=== PATIENT | male | born 1965 ===

== ENCOUNTER 2019-07-13 09:09 | Day surgery (SDC) | payer OTHER ==
[2019-07-13] VITALS (8 sets, daily range): BP systolic 125–162; BP diastolic 77–99
[~2019-07-13] VITALS: Ht 180.3 cm; Wt 108.9 kg
--- NOTE | 2019-07-13 07:52 | Anethesia Preoperative Eval ---
Anesthesia Pre-op PMH/ROS General Date of Evaluation: Jul 13, 2019 Time of Evaluation: 07:51 Anesthesiologist: kristi ASA Score: ASA 3 Mallampati Score Class I : Soft palate, uvula, fauces, pillars visible Class II: Soft palate, uvula, fauces visible Class III: Soft palate, base of uvula visible Class IV: Only hard plate visible Mallampati Classification: Class II Surgeon: lewis Diagnosis: hx/o colon polyps and abdominal pain Surgical Procedure: egd Anesthesia History: none Social History: smoking - nonsmoker Family History: no anesthesia problems Allergies: Coded Allergies: No Known Allergies (Unverified , 07/10/19) Medications: see eMAR Patient NPO?: Yes Past Medical History Cardiovascular: Reports: HTN, other - enlarged heart valve, hypercholesterolemia Pulmonary: Reports: other - snores Gastrointestinal/Genitourinary: Reports: other - kidney stones Anesthesia Pre-op Phys. Exam Physician Exam Last Vital Signs Date Time Temp Pulse Resp B/P (MAP) Pulse Ox O2 Delivery O2 Flow Rate FiO2 07/13/19 10:22 Room Air 07/13/19 10:20 98.7 57 18 139/91 98 Constitutional: NAD Neurologic: CN 2-12 intact Cardiovascular: RRR Respiratory: CTA Gastrointestinal: S/NT/ND Airway Exam Mallampati Score: Class II MO: full Neck: flexible TMD: 2fb Teeth: intact Anesthesia Pre-op A/P Risk Assessment & Plan Assessment: asa3 Plan: mac Status Change Before Surgery: No Pre-Antibiotics Drug: Mary Guajardo MD Jul 13, 2019 07:52
[~2019-07-13 09:09] MED LIST: Atropine Inj 1mg/10ml Syr IV PRN; DiphenhydrAMINE 50mg/ml Inj IVP PRN; LR 1000ml 1,000 ML IVLG SCH; Midazolam 2mg/2ml Inj IVP PRN; fentaNYL 100 mcg/2 mL IV PRN
[2019-07-13] MEDS ORDERED: CARVEDILOL6.25 MG ORAL (10:30)
[2019-07-13] MEDS ORDERED: ATORVASTATIN CA40 MG ORAL (10:30)
[2019-07-13] MEDS ORDERED: LOSARTAN POTASS25 MG ORAL (10:31)
--- NOTE | 2019-07-13 11:25 | Short Stay Surgery H&P ---
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 who was admitted on for History Of Colon Polyps And Abdominal Pain Patient History Allergies: Coded Allergies: No Known Allergies (Unverified , 07/10/19) Medication History Scheduled Atorvastatin Calcium* (Atorvastatin Calcium*), 40 MG ORAL BEDTIME, (Reported) Carvedilol* (Carvedilol*), 6.25 MG ORAL DAILY, (Reported) Losartan Potassium* (Losartan Potassium*), 25 MG ORAL DAILY, (Reported) Physical Exam Vital Signs Last Vital Signs Date Time Temp Pulse Resp B/P (MAP) Pulse Ox O2 Delivery O2 Flow Rate FiO2 07/13/19 10:22 Room Air 07/13/19 10:20 98.7 57 18 139/91 98 Plan Attestation Are the patient's medical conditions optimized for surgery? Servando Sweeney MD Jul 13, 2019 11:25
--- NOTE | 2019-07-13 11:25 | Pre-Procedure Note/Attestation ---
Pre-Procedure Note/Attestation Complete Prior to Procedure Planned Procedure: not applicable Procedure Narrative: EGD, Colon Indications for Procedure Pre-Operative Diagnosis: vomiting , h/o colon polyp Attestation I attest that I discussed the nature of the procedure; its benefits; risks and complications; and alternatives (and the risks and benefits of such alternatives ), prior to the procedure, with the patient (or the patient's legal telephone sales representative). I attest that, if there was a reasonable possibility of needing a blood transfusion, the patient (or the patient's legal telephone sales representative) was given the [facility] standardized written summary, pursuant to the Miah Diana Blood Safety Act ([place] Health and Safety Code # 1645, as amended). I attest that I re-evaluated the patient just prior to the surgery and that there has been no change in the patient's H&P, except as documented below: Servando Sweeney MD Jul 13, 2019 11:25
[2019-07-13] MEDS ORDERED: Atropine Sulfate 0.4mg/ml inj ONE (11:30)
[2019-07-13] MEDS ORDERED: Lidocaine 1% MPF 10mg/ml 5ml ONE (11:30)
[2019-07-13] MEDS ORDERED: Propofol 200mg/20ml IV ONE (11:30)
[2019-07-13] MEDS ORDERED: LR 1000ml ONE (11:30)
--- NOTE | 2019-07-13 13:20 | Immediate Post-Op Evaluation ---
Immediate Post-Op Evalulation Immediate Post-Op Evalulation Procedure: egd/colonoscopy w/bx Date of Evaluation: Jul 13, 2019 Time of Evaluation: 13:04 IV Fluids: 825ml lr Blood Products: none Estimated Blood Loss: negligible Blood Pressure Systolic: 155 Blood Pressure Diastolic: 96 Pulse Rate: 78 Respiratory Rate: 18 O2 Sat by Pulse Oximetry: 99 Temperature (Fahrenheit): 97.0 Pain Score (1-10): 0 Nausea: No Vomiting: No Complications none Patient Status: awake, reacts, patent Hydration Status: adequate Drug: Mary Guajardo MD Jul 13, 2019 13:20
--- NOTE | 2019-07-13 13:22 | 48 Hour Post Anesthesia Eval ---
Post Anesthesia Evaluation Procedure: egd/colonoscopy w/bx Date of Evaluation: Jul 13, 2019 Time of Evaluation: 13:06 Blood Pressure Systolic: 125 0: 84 Pulse Rate: 73 Respiratory Rate: 18 Temperature (Fahrenheit): 97.0 O2 Sat by Pulse Oximetry: 99 Airway: patent Nausea: No Vomiting: No Pain Intensity: 0 Hydration Status: adequate Cardiopulmonary Status: stable Mental Status/LOC: patient returned to baseline Post-Anesthesia Complications: none Follow-up care needed: N/A Mary Olsen MD Jul 13, 2019 13:22
--- NOTE | 2019-07-13 21:56 | Endoscopy Procedure Note ---
Endoscopy Procedure Note General Indication for Procedure: N/V, colon polyp Hx Anesthesia Anesthesiologist: Gregg Izaguirre Anesthesia: MAC Inserted Devices Implant(s) used?: No GI Core Measures 50 yrs or older w/o bx or poly: No 10yrs. F/U recommended: No If not recommended, why?: Above average risk 18 years or older w/prev. colo: Yes <3yrs. since last colonoscopy: No Med reason:<3 yrs.: System Reason:<3 yrs.: Last colonoscopy >= to 3yrs: Yes Servando Sweeney MD Jul 13, 2019 21:56
--- NOTE | 2019-07-13 21:57 | Brief Operative Note ---
Immediate Post Operative Note Operative Note Pre-op Diagnosis: vomiting , h/o colon polyp Specimen: yes Complications: none Condition: stable Fluids: per anesthesia Implant(s) used?: No Servando Sweeney MD Jul 13, 2019 21:57
--- NOTE | 2019-07-14 05:45 | Operative Note - Dictated ---
DATE OF OPERATION: 07/13/2019 GASTROENTEROLOGY PROCEDURE REPORT PROCEDURE: Upper gastrointestinal endoscopy with biopsy as well as colonoscopy with biopsy. SURGEON: Servando Sweeney M.D. ANESTHESIA: Please see the separate anesthesiologist notes for details. PRE-ENDOSCOPIC DIAGNOSES: 1. Vomiting. 2. History of colonic polyps. POST-ENDOSCOPIC DIAGNOSES: 1. 1 cm tongue of gastric colored mucosa in the lower esophagus, which was biopsied to rule out Vincent's esophagus. 2. Status post random biopsies of the normal duodenum, antrum, and lower esophagus above the gastroesophageal junction. 3. Diminutive polyp at 40 cm status post biopsy, 30 cm status post biopsy, and at 25 cm x4 status post biopsy and in the rectum status post biopsy. All these polyps were removed with biopsy forceps. PROCEDURE: The procedure, its risks, indications, alternatives, and possible complications were explained to the patient and informed consent was obtained. The diagnostic upper endoscope was introduced through the oropharynx and advanced to the duodenum. It was gradually withdrawn. The mucosa examined carefully. The rectal exam was then done and colonoscope was advanced into the rectum and advanced to the cecum. The colonoscope was then gradually withdrawn and the mucosa examined carefully. The findings and procedures including biopsies were as listed above. The patient was sent to recovery in good condition. COMPLICATIONS: None. RECOMMENDATIONS: 1. Follow up biopsy results. 2. Repeat colonoscopy in 3 to 5 years depending on pathology results. 3. Outpatient followup. 4. Reflux treatment. Thank you for asking me to participate in the care of this patient. Srevando Sweeney M.D. DR: YARELI JOB#: [id number] CC: Fede Noyola M.D. ; FAX#: [phone]
--- NOTE | 2019-07-14 07:15 | Operative Note - Dictated ---
JOB RE DICTATED MTDD
== END 2019-07-13 14:00 | disposition home or self-care (01) ==
LOC: GAS 09:09
DX: R11.10 Vomiting, unspecified (principal); K63.5 Polyp of colon; E78.00 Pure hypercholesterolemia, unspecified; I10 Essential (primary) hypertension; Z87.442 Personal history of urinary calculi
CPT/HCPCS: 43239; 45380; J0461; J2704; J7120; 94003; 94150